=== PATIENT | male | born 1945 | race Caucasian/White ===

== ENCOUNTER 2021-04-17 10:42 | Day surgery (SDC) | payer MEDICARE, BC ==
[~2021-04-17] VITALS: Ht 185.4 cm; Wt 92.2 kg
[2021-04-17] VITALS (10 sets, daily range): BP systolic 121–141; BP diastolic 69–82; PULSE 62–68; TEMP 98.1
[2021-04-17] MEDS ORDERED: TYLENOL 500MG500 MG PO (11:01)
[2021-04-17] MEDS ORDERED: [UNRECOGNIZED DRUG - OTHER] NS (11:02)
[2021-04-17] MEDS ORDERED: ASPIRIN E.C. 8181 MG PO (11:03)
[2021-04-17] MEDS ORDERED: DILANTIN 100MG100 MG PO (11:05)
[2021-04-17] MEDS ORDERED: MYSOLINE 250MG250 MG PO (11:07)
[2021-04-17] MEDS ORDERED: TRELEGY ELLIPT1 EACH IH (11:09)
[2021-04-17] MEDS ORDERED: VITAMINC250CH PO (11:10)
[2021-04-17] MEDS ORDERED: VITAMIN B COMPL1 SGL PO (11:10)
[2021-04-17 11:49] LABS: HEMOGLOBIN 12.2 g/dl (13.5-18.0); MEAN CELL VOLUME 102 fl (80.0-100.0); MEAN CORPUSCULAR HEMOGLOBIN 35 pg (27-31); MEAN CORPUSCULAR HGB CONC 34 g/dl (33.0-37.0); MEAN PLATELET VOLUME 9.6 fl (7.4-10.4); PLATELET COUNT 356 K/mm3 (130-400); RED BLOOD COUNT 3.53 M/mm3 (4.20-5.60); REDCELL DISTRIBUTION WIDTH-CV 17.2 % (11.5-14.5)
[2021-04-17 11:55] LABS: INR 1.2 (0.8-3.0)
[2021-04-17 11:57] LABS: PARTIAL THROMBOPLASTIN TIME 33.3 SECONDS (26.0-37.0)
[2021-04-17] MEDS ORDERED: ZYRTEC 10MG10 MG PO (12:00)
[2021-04-17] MEDS ORDERED: CENTRUM MEN'S PO (12:01)
[2021-04-17 12:03] LABS: CALCIUM 8.9 mg/dL (8.4-10.2); CREATININE, serum 0.74 mg/dL (0.72-1.25); POTASSIUM 4.1 mmol/L (3.5-4.5)
--- NOTE | 2021-04-17 12:46 | NUR ---
SEE MERGE FOR ALL MEDICATION ADMINISTRATION TIMES/DOSAGES AND INTRA/POST PROCEDURE SEDATION ASSESSMENTS.
--- NOTE | 2021-04-17 13:10 | NUR ---
Report from Janae ETIENNE. Transferred by bed from [employer]. Right Tband with 12 cc air CD&I, good pulses and cap refill < 3 secs noted. Alert and oriented. VSS
--- NOTE | 2021-04-17 15:46 | NUR ---
12 cc air released from right Tband and drsg applied. INT discontinued intact.
--- NOTE | 2021-04-17 15:56 | NUR ---
Discharge instructions given
--- NOTE | 2021-04-17 16:09 | NUR ---
Transferred to private car by blaise
== END 2021-04-17 16:00 | disposition home or self-care (01) ==
LOC: COL.CAR 10:42
PROVIDERS: Internal Medicine Cardiovascular Disease
DX: R94.39 Abnormal result of other cardiovascular function study (principal); R06.02 Shortness of breath; R06.00 Dyspnea, unspecified; I65.23 Occlusion and stenosis of bilateral carotid arteries; J44.9 Chronic obstructive pulmonary disease, unspecified; Z79.82 Long term (current) use of aspirin; Z79.899 Other long term (current) drug therapy; Z87.891 Personal history of nicotine dependence
CPT/HCPCS: C1769; J1644; J2250; J3010; Q9967